=== PATIENT | male | born 1950 | race African-American/Black ===

== ENCOUNTER 2021-01-28 10:01 | Day surgery (SDC) | payer OTHER ==
[2021-01-25 09:49] VITALS: BMI 18.4
[2021-01-28] MEDS ORDERED: Lidocaine 1% MPF 2 ML VIAL ONE (10:11)
[2021-01-28] MEDS ORDERED: PROPOFOL 40 ML ONE (11:31)
== END 2021-01-28 13:18 | disposition home or self-care (01) ==
LOC: CSHSDC 10:01
PROVIDERS: ATTEND Internal Medicine Gastroenterology
PROC: 0DJD8ZZ Inspection of Lower Intestinal Tract, Via Natural or Artificial Opening Endoscopic (ICD-10-PCS; principal; 2021-01-28)
DX: Z12.11 Encounter for screening for malignant neoplasm of colon (principal); Q43.8 Other specified congenital malformations of intestine; K57.30 Diverticulosis of large intestine without perforation or abscess without bleeding; K64.9 Unspecified hemorrhoids; I10 Essential (primary) hypertension; E11.9 Type 2 diabetes mellitus without complications; E78.5 Hyperlipidemia, unspecified; H90.5 Unspecified sensorineural hearing loss; Z79.82 Long term (current) use of aspirin; Z79.84 Long term (current) use of oral hypoglycemic drugs; Z79.899 Other long term (current) drug therapy
CPT/HCPCS: J2704